=== PATIENT | male | born 1985 | race Caucasian/White ===

== ENCOUNTER 2021-11-04 08:33 | Day surgery (SDC) | payer OTHER ==
[~2021-11-04] VITALS: Ht 177.8 cm; Wt 75.0 kg
[~2021-11-04 08:33] MED LIST: EPINEPHrine NASAL 30 MG/30 ML BOTTLE ONE; GELATIN SPONGE SIZE 100. ONE; HYDROmorphone 2 MG/ML INJ. IVP PRN; IV RINGERS,LACTATED 1000ML 1,000 ML IV SCH; LIDOCAINE 1%/EPI 1:100,000 20 ML VIAL. ONE; MORPHINE SULFATE 2 MG/ML INJ. IVP PRN; NEOMY/BACITR/POLYMYXIN OINT PACKET. TP ONE; OXYMETAZOLINE 0.05% NASAL SPRAY 30ML BOTTLE. NS ONE; PROCHLORPERAZINE 10 MG/2 ML VIAL. IVP PRN; fentaNYL PF VIAL 100 MCG/2 ML VIAL IVP PRN
[2021-11-04 08:49] VITALS: BP 125/76
[2021-11-04] MEDS ORDERED: DEXAMETHASONE SOD PHOS 4 MG/ML VIAL ONE ×2 (09:32→10:29)
[2021-11-04] MEDS ORDERED: LIDOCAINE 2% PF 5 ML VIAL. ONE ×2 (09:32→09:33)
[2021-11-04] MEDS ORDERED: PROPOFOL 10 MG/ML (20ML) VIAL. IV ONE ×2 (09:32→10:29)
[2021-11-04] MEDS ORDERED: ROCURONIUM 50 MG/5 ML VIAL. ONE (09:33)
[2021-11-04] MEDS ORDERED: ONDANSETRON PF 4 MG/2 ML VIAL. ONE (09:33)
[2021-11-04] MEDS ORDERED: SUCCINYLCHOLINE 200 MG/10 ML VIAL. ONE (09:34)
[2021-11-04] MEDS ORDERED: MIDAZOLAM HCL/PF 2 MG/2 ML VIAL. ONE (09:35)
[2021-11-04] MEDS ORDERED: fentaNYL PF VIAL 100 MCG/2 ML VIAL ONE (09:36)
[2021-11-04] MEDS ORDERED: FAMOTIDINE 20 MG/2 ML VIAL ONE (10:20)
[2021-11-04] MEDS ORDERED: GLYCOPYRROLATE 1 MG/5 ML VIAL. ONE (10:30)
[2021-11-04] MEDS ORDERED: SEVOFLURANE 61 TO 120 MINUTES. IH ONE (10:33)
[2021-11-04] MEDS ORDERED: 0.9 % SODIUM CHLORIDE 20 ML VIAL. IJ ONE (10:39)
[2021-11-04] MEDS ORDERED: SUGAMMADEX SODIUM 200 MG/2 ML VIAL. IVP ONE (11:00)
[2021-11-04] MEDS ORDERED: TRAM50TA PO (12:07)
[2021-11-04] MEDS ORDERED: traMADol 50 MG TABLET PO ONE (12:15)
[2021-11-04 12:25] VITALS: BP 134/88
--- NOTE | 2021-11-04 15:44 | OP ---
DATE OF SURGERY: 11/04/2021 PREOPERATIVE DIAGNOSES: Deviated nasal septum and inferior nasal turbinate hypertrophy. PROCEDURE PERFORMED: Nasal septoplasty with reduction of inferior nasal turbinates. INDICATIONS FOR THE PROCEDURE: Nasal obstruction and chronic mouth breathing. ANESTHESIA: General anesthetic. BLOOD LOSS: Estimated at 15-20 mL. Nasal cartilage was removed, but it was not submitted for pathology evaluation. DESCRIPTION OF PROCEDURE: The patient was brought to the operating room. He was placed on the operating table in supine position, and he was given a general anesthetic. When he was stabilized, airway was stable, the table was rotated 90 degrees. His nose was then examined and then it was observed that there was narrowing of the nasal passage with deviation of the septum. A premaxillary crest spur was noted and twisting of the cartilage into the right side was present. The inferior nasal turbinates were obstructively enlarged. They were decongested with Afrin nasal spray, allowing better visualization. The nasal septum was then infiltrated with 1% lidocaine with epinephrine and his face was then prepped and draped after sterile fashion. A curvilinear incision was then made along the mucocutaneous border in the left side of his nose and the mucoperichondrium was from the nasal septum. The separation was progressed to the bony cartilaginous junction, after which a crossover incision was made. Then, this mobilized the septum and allowed manipulation of the cartilaginous portion. The premaxillary crest spur was then addressed. The mucous membrane was elevated off of the surface of the bony structure. It was skeletonized and then removed in segments, first with Blakesley forceps and then it was with an osteotome. This then provided much more mobilization to the anterior cartilaginous septum superiorly. The perpendicular plate of the ethmoid was twisted. The off-centered portions were then removed posteriorly. Inferiorly, there was continuation of the premaxillary crest spur that was modified to provide a midline structural position, but still provide adequate support and septal stability. The developed nasal passage was then irrigated. A small amount of bleeding occurred over the surface of the premaxillary crest and that was then controlled with cauterization and the remaining blood was removed. The turbinates were then addressed, the right one first. The anterior one-third of the soft tissue was injected with saline and then a Coblation wand was inserted at 2 points and coblated. Radiofrequency was applied until there was contraction of the mucous membrane, after which the turbinate was outfractured using a large speculum. The left turbinate was approached in the same manner with injection of the saline and placement of the Coblation wand and application of radiofrequency energy until there was reduction of turbinate volume, after which the turbinate was outfractured. The nose was then irrigated. The elevated flap region was irrigated also and no active bleeding was occurring. The incision site and the flap elevation was closed using chromic suture, after which the nose was then cleaned again and Gelfoam was placed in each side of the nasal passage and the procedure was completed. The patient was recovered from his anesthesia and taken to the recovery room in stable condition. JULIEN DR: Alen TID: [id number]
== END 2021-11-04 12:55 | disposition home or self-care (01) ==
LOC: SURG 08:33
PROVIDERS: ATTEND Otolaryngology
DX: J34.2 Deviated nasal septum (principal); J34.3 Hypertrophy of nasal turbinates; R06.5 Mouth breathing; M19.90 Unspecified osteoarthritis, unspecified site; Z72.89 Other problems related to lifestyle; Z79.899 Other long term (current) drug therapy; Z98.890 Other specified postprocedural states
CPT/HCPCS: 30520; 30802; A4209; A4215; A4930; J0330; J0690; J1100; J2250; J2405; J2704; J3010; J3490; A4657